=== PATIENT | female | born 1970 | race Caucasian/White ===

== ENCOUNTER 2019-09-10 18:17 | Emergency (ER) | payer MEDICAID ==
[~2019-09-10] VITALS: Ht 152.4 cm; Wt 93.9 kg
[2019-09-10 18:55] VITALS: BP 125/76
--- NOTE | 2019-09-10 22:06 | NUR ---
PT STILL HAS C/O DIZZINESS AND NAUSEA. PT DENIES PAIN. PT CONDITION STABLE AT THIS TIME. PT SEATED BACK INTO LOBBY TO A/W BED.
--- NOTE | 2019-09-10 22:50 | NUR ---
PATIENT ASSESSMENT COMPLETED. SITTING UP IN CHAIR. NO NEEDS ADDRESSED. FAMILY MEMBER AT BEDSIDE
--- NOTE | 2019-09-10 22:52 | NUR ---
DR REYNA AT CHAIRSIDE
[2019-09-10] MEDS ORDERED: MECLIZINE 25 MG TAB PO ONE (22:55)
[2019-09-10] MEDS ORDERED: NACL 0.9% 1,000 ML IV ONE (22:55)
[2019-09-10] MEDS ORDERED: PROCHLORPERAZINE 10 MG/2 ML VIAL IVP ONE (22:55)
--- NOTE | 2019-09-10 23:25 | NUR ---
PT AMBULATED TO BED #6
[2019-09-11 01:16] VITALS: BP 134/76
--- NOTE | 2019-09-11 01:17 | NUR ---
Patient discharged with v/s stable. Written and verbal after care instructions given and explained. Patient verbalized understanding. Ambulatory with steady gait. All questions addressed prior to discharge. Advised to follow up with PMD.
== END 2019-09-11 01:17 | disposition home or self-care (01) ==
LOC: MED 18:17
DX: R42 Dizziness and giddiness (principal); R11.2 Nausea with vomiting, unspecified
CPT/HCPCS: 96361; 96374; 99283; J0780; J8597